=== PATIENT | female | born 1950 | race Two or more races ===

== ENCOUNTER 2020-07-09 03:58 | Inpatient (IN) | payer MEDICARE, BC ==
[~2020-07-09] VITALS: Ht 157.5 cm; Wt 61.7 kg
--- NOTE | 2020-07-09 04:02 | NUR ---
BIBRA 89 FROM HOME C/O LEFT SIDED CHEST PAIN SINCE MIDNIGHT. PT AAOX4, DENEIS ANY SOB. GOWNED, PIV STARTED, PENDING ER PROVIDER MARY
[2020-07-09 04:42] LABS: BASOPHILS # (AUTO) 0.2 /CMM (0.0-0.2); BASOPHILS % (AUTO) 0.8 % (0.0-2.0); HEMATOCRIT 38 % (33-45); HEMOGLOBIN 12.3 g/dL (11.5-14.8); LYMPHOCYTES # (AUTO) 1.6 /CMM (0.8-4.8); LYMPHOCYTES % (AUTO) 9.2 % (20.0-44.0); MEAN CORPUSCULAR HGB CONC 32 g/dl (31.0-36.0); MEAN CORPUSCULAR VOLUME 97 fL (82-100); MONOCYTES # (AUTO) 1.3 /CMM (0.1-1.30); NEUTROPHILS # (AUTO) 14.5 /CMM (1.8-8.9); PLATELET COUNT (AUTO) 397 /CMM (150-450); RED BLOOD CELL COUNT(AUTO) 3.95 MIL/uL (4.0-5.2); WHITE BLOOD COUNT (AUTO) 17.9 K/uL (4.3-11.0)
[2020-07-09] MEDS ORDERED: LORAZEPAM 1 MG TABLET ONE (04:45)
[2020-07-09 04:48] LABS: CALCIUM, SERUM 9.1 mg/dL (8.5-10.1); CARBON DIOXIDE 26 mmol/L (21-32); CHLORIDE 99 mmol/L (98-107); CREATININE 0.9 mg/dL (0.6-1.3); GLUCOSE 142 mg/dL (74-106); POTASSIUM 3.4 mmol/L (3.5-5.1); SODIUM SERUM 137 mmol/L (136-145); UREA NITROGEN, BLOOD 8 mg/dL (7-18)
[2020-07-09] MEDS ORDERED: ONDANSETRON HCL/PF 4 MG/2 ML VIAL ONE (04:56)
[2020-07-09] MEDS ORDERED: MORPHINE SULFATE INJ 4 MG/ML DISP.SYRIN ONE (04:56)
[2020-07-09] MEDS ORDERED: ONDANSETRON HCL/PF 4 MG/2 ML VIAL IV ONE (05:00)
[2020-07-09] MEDS ORDERED: MORPHINE SULFATE INJ 10 MG/ML DISP.SYRIN IV ONE (05:00)
[2020-07-09] MEDS ORDERED: VANCOMYCIN 1 GM in IV D5W 250 ML IV ONE (06:00)
[2020-07-09] MEDS ORDERED: PIPERACILLIN /TAZOBACTAM 3.375 G in IV D5W 50 ML IV ONE (06:00)
--- NOTE | 2020-07-09 06:00 | NUR ---
PT UNABLE TO PROVIDE URINE SAMPLE AT THIS TIME, DR DAVILA AWARE
--- NOTE | 2020-07-09 06:19 | NUR ---
COVID SWAB SENT
[2020-07-09] MEDS ORDERED: PIPERACILLIN /TAZOBACTAM 3.375 G VIAL IV ONE (06:20)
[2020-07-09] MEDS ORDERED: VANCOMYCIN 1 GM VIAL ONE (06:20)
[2020-07-09] MEDS ORDERED: MAGNESIUM HYDROXIDE 30 ML UDC PO PRN (07:00)
[2020-07-09] MEDS ORDERED: Z GUARD REMEDY 2 OZ OINT TP PRN (07:00)
[2020-07-09] MEDS ORDERED: MAG HYDROX/AL HYDROX/SIMETH 30 ML UDC PO PRN (07:00)
[2020-07-09] MEDS ORDERED: ZOLPIDEM TARTRATE 5 MG TABLET PO PRN (07:00)
[2020-07-09] MEDS ORDERED: ONDANSETRON HCL/PF 4 MG/2 ML VIAL IVP PRN (07:00)
[2020-07-09] MEDS: ENOXAPARIN SODIUM 40 MG/0.4 ML DISP.SYRIN SQ SCH (07:30)
[2020-07-09] MEDS: PANTOPRAZOLE 40 MG TABLET.DR PO SCH ×2 (07:30→08:05)
[2020-07-09] MEDS ORDERED: ENOXAPARIN SODIUM 40 MG/0.4 ML DISP.SYRIN SQ ONE (07:56)
[2020-07-09] MEDS ORDERED: PANTOPRAZOLE 40 MG TABLET.DR PO ONE (07:56)
--- NOTE | 2020-07-09 08:00 | NUR ---
PT V/S STABLE, MEDS ADMIN ORDERED. WILL MONITOR ACCORDINGLY.
[2020-07-09] MEDS: NICOTINE PATCH (7MG) 7 MG PATCH.TD24 TD SCH ×2 (08:18→09:00)
[2020-07-09] MEDS: PIPERACILLIN /TAZOBACTAM 3.375 G in IV D5W 100 ML IV SCH ×2 (09:28→18:07)
[2020-07-09] MEDS: HYDROCODONE/APAP 5/325MG TABLET PO PRN ×2 (09:30→19:44)
[2020-07-09] MEDS ORDERED: HYDROCODONE/APAP 5/325MG TABLET ONE (09:30)
--- NOTE | 2020-07-09 09:30 | NUR ---
PATIENT REFUSED BREAKFAST TRAY.
[2020-07-09] MEDS ORDERED: AMLO-212 MT (10:35)
--- NOTE | 2020-07-09 10:37 | NUR ---
PATIENT A/OX4, REMOVED O2 AND SPO2 SHOWS 85% ON ROOM AIR. DR. WALTER AT BEDSIDE FOR EVAL.
[2020-07-09] MEDS ORDERED: POTASSIUM CHLORIDE 20 MEQ TAB.PRT.SR PO SCH (11:00)
[2020-07-09] MEDS ORDERED: POTASSIUM CHLORIDE 20 MEQ TAB.PRT.SR PO ONE (11:07)
[2020-07-09] MEDS ORDERED: MORPHINE SULFATE INJ 2 MG/ML DISP.SYRIN ONE (11:54)
--- NOTE | 2020-07-09 11:57 | NUR ---
NURSING SUP GAVE TELE BED 105.
[2020-07-09] MEDS: MORPHINE SULFATE INJ 2 MG/ML DISP.SYRIN IV PRN ×2 (12:01→17:28)
--- NOTE | 2020-07-09 12:30 | NUR ---
REPORT GIVEN TO BJ HORAN FOR CAR.
--- NOTE | 2020-07-09 12:31 | NUR ---
REPORT RECEIVED FROM MARIVELGet Me ListedAlyson FOR CAR.
--- NOTE | 2020-07-09 13:03 | NUR ---
PATIENT TRANSFERRED TO ROOM 105-1 VIA ACLS PROTOCOL. NO DISTRESS NOTED. ON O2 AT 4LPM VIA NC WITH SPO2 OF 98%. NEEDS ATTENDED.
--- NOTE | 2020-07-09 13:04 | NUR ---
ADMIT NOTE RECEIVED PATIENT FROM ER VIA GURNEY. PATIENT ON 4L O2 THERAPY VIA NASAL CANNULA, NO S/S OF RESPIRATORY DISTRESS AT THIS TIME. PATIENT ALERT/ORIENTED X4, ABLE TO MAKE NEEDS KNOWN. TELE MONITOR SET UP. PATIENT HAS A R HAND 22G IV INTACT AND PATENT. NO S/S OF INFECTION AT THIS TIME. PATIENT REPORTS SEVERE CHEST PAIN. PATIENT RECEIVED MORPHINE 2MG AT 1201 IN THE ER. MD MADE AWARE OF CONTINUED PAIN. ALL SAFETY MEASURES IN PLACE PER HOSPITAL POLICY. WILL CONTINUE TO MONITOR PATIENT AND PROVIDE TREATMENT.
[2020-07-09] MEDS ORDERED: NITROGLYCERIN 0.4 MG/TAB BOTTLE SL ONE (14:00)
[2020-07-09] MEDS: ACETAMINOPHEN 325 MG TABLET PO PRN (14:08)
[2020-07-09 16:00] VITALS: BP 154/68
[2020-07-09] MEDS ORDERED: NITROGLYCERIN 0.4 MG/HR PATCH.TD24 TD SCH (17:30)
--- NOTE | 2020-07-09 18:29 | NUR ---
TELEMETRY CLOSING NOTE PATIENT ON 4L O2 THERAPY VIA NASAL CANNULA, NO S/S OF RESPIRATORY DISTRESS AT THIS TIME. PATIENT ALERT/ORIENTED X4, ABLE TO MAKE NEEDS KNOWN. TELE MONITOR SET UP. PATIENT HAS A R HAND 22G IV INTACT AND PATENT. NO S/S OF INFECTION AT THIS TIME. ALL SAFETY MEASURES IN PLACE PER HOSPITAL POLICY. WILL ENDORSE TO LARD BLEACHER NURSE FOR CAR.
[2020-07-09 20:00] VITALS: BP 146/75
--- NOTE | 2020-07-09 20:16 | NUR ---
RN NOTE PATIENT A/OX4, AWAKE AND ALERT. ABLE TO MAKE NEEDS KNOWN. NO SOB OR ANY DISTRESS. ON O2 4L VIA NASAL CANNULA. C/O OF 8/10 CHEST PAIN, NORCO 5/325 MG GIVEN ORDERED. WILL REASSES FOR EFFECTIVENESS. WITH RIGHT HAND #22, PATENT AND INTACT. ALL NEEDS ANTICIPATED. KEPT CLEAN AND DRY. CALL LIGHT WITHIN REACH. WILL CONTINUE TO MONITOR.
--- NOTE | 2020-07-09 21:29 | NUR ---
PATIENT STATED NITRO PASTE PATCH IS INEFFECTIVE AND INSISTS NITRO SL TO RELIEVE HER PAIN. DR. BURROUGHS MADE AWARE WITH NEW ORDERS NOTED AND CARRIED OUT.
[2020-07-10] VITALS (7 sets, daily range): BP systolic 115–133; BP diastolic 70–77
[2020-07-10] MEDS: NITROGLYCERIN 0.4 MG/TAB BOTTLE SL PRN ×3 (00:15→00:41)
[2020-07-10] MEDS: MORPHINE SULFATE INJ 2 MG/ML DISP.SYRIN IV PRN ×4 (00:48→19:13)
[2020-07-10] MEDS: PIPERACILLIN /TAZOBACTAM 3.375 G in IV D5W 100 ML IV SCH ×3 (01:32→18:11)
[2020-07-10] MEDS ORDERED: ALPRAZOLAM 0.25 MG TABLET PO PRN (06:00)
--- NOTE | 2020-07-10 06:00 | NUR ---
PATIENT EXPRESSED FEELINGS OF ANXIETY. ENFORCED CALM ENVIRONMENT, NEEDS ATTENDED PROMPTLY, BUT STILL ANXIOUS. DR. BURROUGHS MADE AWARE WITH NEW ORDERS NOTED AND CARRIED OUT.
[2020-07-10] MEDS: ENOXAPARIN SODIUM 40 MG/0.4 ML DISP.SYRIN SQ SCH (06:21)
--- NOTE | 2020-07-10 07:00 | NUR ---
RN NOTE PATIENT A/OX4, AWAKE AND ALERT. NO SOB OR ANY RESPIRATORY DISTRESS. DENIES ANY PAIN AT THIS TIME. ON O2 4L VIA NASAL CANNULA, O2 SAT 97%. WITH RIGHT HAND #22 PATENT AND INTACT. ALL NEEDS ATTENDED PROMPTLY. CALL LIGHT WITHIN REACH. SAFETY MEASURES IMPLEMENTED. WILL ENDORSE TO ONCOMING SHIFT.
[2020-07-10 07:28] LABS: BASOPHILS % (AUTO) 0.2 % (0.0-2.0); EOSINOPHILS % (AUTO) 0.2 % (0.0-6.0); HEMATOCRIT 34 % (33-45); HEMOGLOBIN 11.2 g/dL (11.5-14.8); LYMPHOCYTES # (AUTO) 0.7 /CMM (0.8-4.8); LYMPHOCYTES % (AUTO) 5.2 % (20.0-44.0); MEAN CORPUSCULAR HGB CONC 33 g/dl (31.0-36.0); MEAN CORPUSCULAR VOLUME 97 fL (82-100); MONOCYTES # (AUTO) 1.5 /CMM (0.1-1.30); MONOCYTES % (AUTO) 11.4 % (2.0-12.0); PLATELET COUNT (AUTO) 339 /CMM (150-450); RED BLOOD CELL COUNT(AUTO) 3.53 MIL/uL (4.0-5.2); WHITE BLOOD COUNT (AUTO) 13.2 K/uL (4.3-11.0)
--- NOTE | 2020-07-10 07:30 | NUR ---
RN OPENEING NOTES Patient is alert and oriented with no s/s of respiratory depression. Patient is breathing even and unlabored. On 02 4liters via n/c with 02 sat of 96% . IV access to right hand #22 gauge patent and flushing well. No c/o pain or discomfort. Bed is in lowest and locked position. Call light with in reach. Will continue to monitor.
[2020-07-10 07:40] LABS: CALCIUM, SERUM 8.7 mg/dL (8.5-10.1); CREATININE 0.7 mg/dL (0.6-1.3); MAGNESIUM 1.9 mg/dL (1.8-2.4); PHOSPHORUS 3.2 mg/dL (2.5-4.9); POTASSIUM 3.9 mmol/L (3.5-5.1)
[2020-07-10] MEDS: AMLODIPINE BESYLATE 5 MG TABLET PO SCH (09:54)
--- NOTE | 2020-07-10 16:40 | NUR ---
Patient was transferred to MED SURG at apprx 1630. Report given to Dinorah HORAN by bed side and on the phone. Patient did not c/o respiratory distress. No c/o pain or discomfort. 02 sat 96% on 4 lpm via n/c via tank. Patient transferred and not in any acute distress.
--- NOTE | 2020-07-10 16:45 | NUR ---
DIRECTOR OF EARLY CHILDHOOD NOTE RECEIVED PATIENT FROM [facility]. PATIENT IN NO ACUTE DISTRESS. NO SOB NOTED. PATIENT IS ON 4L OXYGEN VIA NASAL CANNULA. TOLERATING WELL. PATIENTS VITAL SIGNS ARE WITHIN NORMAL LIMITS. WILL CONTINUE TO MONITOR CLOSELY THROUGH THE REST OF THE SHIFT.
--- NOTE | 2020-07-10 20:06 | NUR ---
ARCHITECTURAL DESIGN PROFESSOR CLOSING NOTE PATIENT IS IN BED RESTING. PATIENT IS IN NO ACUTE DISTRESS. NO SOB NOTED PATIENT IS ON OXYGEN 4L ON NC. TOLERATING WELL. PATIENT IS ON TELE READING SR. SAFETY PRECAUTIONS ARE IN PLACE. BED IN THE LOWEST POSITION, SIDE RAILS ARE UP. CALL LIGHT WITHIN REACH. ENDORSE PATIENT TO THE NURSING ADMIN NURSE FOR CAR.
[2020-07-11] VITALS: BP_SYST 135; BP_SYST 142; BP_DIAS 78; BP_DIAS 79
[2020-07-11] MEDS: PIPERACILLIN /TAZOBACTAM 3.375 G in IV D5W 100 ML IV SCH ×3 (01:17→17:08)
[2020-07-11] MEDS: MORPHINE SULFATE INJ 2 MG/ML DISP.SYRIN IV PRN (02:17)
[2020-07-11 04:00] VITALS: BP 154/90
[2020-07-11 04:30] VITALS: BP 132/80
[2020-07-11 06:18] LABS: BASOPHILS # (AUTO) 0.1 /CMM (0.0-0.2); EOSINOPHILS % (AUTO) 0.3 % (0.0-6.0); HEMATOCRIT 37 % (33-45); HEMOGLOBIN 12.2 g/dL (11.5-14.8); LYMPHOCYTES # (AUTO) 0.7 /CMM (0.8-4.8); LYMPHOCYTES % (AUTO) 4.5 % (20.0-44.0); MEAN CORPUSCULAR HGB CONC 33 g/dl (31.0-36.0); MEAN CORPUSCULAR VOLUME 96 fL (82-100); MONOCYTES # (AUTO) 1.6 /CMM (0.1-1.30); MONOCYTES % (AUTO) 10.9 % (2.0-12.0); NEUTROPHILS % (AUTO) 83.3 % (43.0-81.0); PLATELET COUNT (AUTO) 369 /CMM (150-450); RED BLOOD CELL COUNT(AUTO) 3.87 MIL/uL (4.0-5.2); WHITE BLOOD COUNT (AUTO) 14.4 K/uL (4.3-11.0)
--- NOTE | 2020-07-11 06:23 | NUR ---
RN NOTES PATIENT IS IN BED RESTING. PATIENT IS IN NO ACUTE DISTRESS. NO SOB NOTED PATIENT IS ON OXYGEN 4L ON NC. TOLERATING WELL. PATIENT IS ON TELE READING SR. SAFETY PRECAUTIONS ARE IN PLACE, CALL LIGHT WITHIN REACH. ALL NEEDS ATTENDED AND ANTICIPATED, ENDORSE PATIENT TO THE AM SHIFT NURSE FOR CONTIUITY WITH CRAE .
[2020-07-11] MEDS: ENOXAPARIN SODIUM 40 MG/0.4 ML DISP.SYRIN SQ SCH (06:49)
[2020-07-11 07:14] LABS: CALCIUM, SERUM 8.8 mg/dL (8.5-10.1); CREATININE 0.6 mg/dL (0.6-1.3); POTASSIUM 3.8 mmol/L (3.5-5.1)
--- NOTE | 2020-07-11 07:20 | NUR ---
PRESCHOOL TEACHER OPENING NOTES PATIENT IN BED. A/O X4. VERBALIZING SOB WHEN MOVING. NC ON 4 LPM. IV ACCESS ON R HAND #22 G. ORDERED NITRO PATCH 0.4 MG PER MD MARTÍNEZ. SAFETY MEASURES MAINTAINED. BED IN LOWEST POSITION, BRAKES LOCKED. SIDE RAILS UP X2. CALL LIGHT WITHIN REACH. WILL CONTINUE PLAN OF CARE.
[2020-07-11 07:33] LABS: ALBUMIN 2.7 g/dL (3.4-5.0); BILIRUBIN,TOTAL 0.5 mg/dL (0.2-1.0); TOTAL PROTEIN, SERUM 7.2 g/dL (6.4-8.2)
[2020-07-11] MEDS ORDERED: NITROGLYCERIN 0.4 MG/HR PATCH.TD24 TD SCH (08:00)
[2020-07-11 08:29] VITALS: BP 135/84
[2020-07-11] MEDS: AMLODIPINE BESYLATE 5 MG TABLET PO SCH (08:47)
[2020-07-11] MEDS: PANTOPRAZOLE 40 MG TABLET.DR PO SCH (08:47)
--- NOTE | 2020-07-11 14:00 | NUR ---
MS RN NOTES TEMP 100.5. TYLENON WAS GIVEN.
[2020-07-11] MEDS: NITROGLYCERIN 0.4 MG/TAB BOTTLE SL PRN (14:03)
[2020-07-11] MEDS: ACETAMINOPHEN 325 MG TABLET PO PRN (14:10)
--- NOTE | 2020-07-11 15:30 | NUR ---
MS RN NOTES TEMP WENT DOWN TO 99 F. WILL CONTINUE TO MONITOR.
[2020-07-11 16:24] VITALS: BP 147/73
--- NOTE | 2020-07-11 18:57 | NUR ---
PERSONNEL TECHNICIAN CLOSING NOTES PATIENT IN BED. A/O X4. NC ON 2 LPM WITH SAO2 OF 99%. IV ACCESS ON R HAND #22 G. ABLE TO MAKE NEEDS KNOWN. ROUTINE MEDS WERE GIVEN ORDERED. SAFETY MEASURES MAINTAINED. BED IN LOWEST POSITION, BRAKES LOCKED. SIDE RAILS UP X2. CALL LIGHT WITHIN REACH. WILL ENDORSE TO [employer] LABORER FOR CAR.
--- NOTE | 2020-07-11 19:30 | NUR ---
MS/RN OPENING NOTES RECEIVED PATIENT IN BED. PATIENT IS ALERT AND ORIENTED X 4. PATIENT BREATHING IS EVEN AND UNLABORED. PATIENT HAS NO SIGNS OF SOB OR RESPIRATORY DISTRESS NOTED. PATIENT STATES MILD DISCOMFORTABLE AT THIS TIME, DENIES CHEST PAIN. PATIENT HAS IV ACCESS IN PLACE FLUSHING WELL. SAFETY MEASURES ARE IN PLACE, BED IS LOCKED AND PLACED IN THE LOW POSITION, SIDE RAILS UP X 2 CALL LIGHT IS WITHIN REACH. WILL CONTINUE TO MONITOR THROUGH OUT SHIFT.
[2020-07-11 20:00] VITALS: BP 148/78
[2020-07-11] MEDS: HYDROCODONE/APAP 5/325MG TABLET PO PRN (20:52)
--- NOTE | 2020-07-11 21:00 | NUR ---
MS/RN NOTES PATIENT COMPLAINING OF GENERALIZED PAIN AND DISCOMFORT. NORCO 5 MG PO GIVEN. V/S WNL. WILL CONTINUE TO MONITOR.
[2020-07-12] MEDS: PIPERACILLIN /TAZOBACTAM 3.375 G in IV D5W 100 ML IV SCH (01:44)
[2020-07-12] MEDS: HYDROCODONE/APAP 5/325MG TABLET PO PRN (01:56)
--- NOTE | 2020-07-12 02:00 | NUR ---
MS/RN NOTES PATIENT STATED GENERALIZED PAIN AND DISCOMFORT. NORCO 5 MG PO GIVEN. V/S WNL. WILL CONTINUE TO MONITOR.
[2020-07-12 06:16] LABS: BASOPHILS # (AUTO) 0.1 /CMM (0.0-0.2); BASOPHILS % (AUTO) 0.8 % (0.0-2.0); EOSINOPHILS % (AUTO) 0.8 % (0.0-6.0); HEMATOCRIT 36 % (33-45); LYMPHOCYTES # (AUTO) 0.9 /CMM (0.8-4.8); LYMPHOCYTES % (AUTO) 6.2 % (20.0-44.0); MEAN CORPUSCULAR HGB CONC 33 g/dl (31.0-36.0); MEAN CORPUSCULAR VOLUME 95 fL (82-100); MONOCYTES # (AUTO) 1.6 /CMM (0.1-1.30); MONOCYTES % (AUTO) 11.4 % (2.0-12.0); NEUTROPHILS # (AUTO) 11.5 /CMM (1.8-8.9); NEUTROPHILS % (AUTO) 80.8 % (43.0-81.0); PLATELET COUNT (AUTO) 408 /CMM (150-450); RED BLOOD CELL COUNT(AUTO) 3.81 MIL/uL (4.0-5.2); WHITE BLOOD COUNT (AUTO) 14.2 K/uL (4.3-11.0)
--- NOTE | 2020-07-12 06:54 | NUR ---
MS/RN CLOSING NOTES PATIENT IN BED RESTING. PATIENT IS ALERT AND ORIENTED X 4. PATIENT BREATHING IS EVEN AND UNLABORED. PATIENT HAS NO SIGNS OF SOB OR RESPIRATORY DISTRESS NOTED. PATIENT HAS IV ACCESS IN PLACE FLUSHING WELL ON RIGHT HAND #22G. ALL NEEDS HAVE BEEN MET DURING SHIFT. SAFETY MEASURES ARE IN PLACE, BED IS LOCKED AND PLACED IN THE LOW POSITION, SIDE RAILS UP X 2 CALL LIGHT IS WITHIN REACH. WILL ENDORSE CARE TO DAY SHIFT NURSE.
--- NOTE | 2020-07-12 07:15 | NUR ---
MS RN OPENING NOTES PATIENT IN BED. A/O X4. NO S/S OF RESPIRATORY DISTRESS. DENIES ANY PAIN. NC ON 2 LPM. IV ACCESS ON R HAND #22 G. SAFETY MEASURES MAINTAINED. BED IN LOWEST POSITION, BRAKES LOCKED. SIDE RAILS UP X2. CALL LIGHT WITHIN REACH. WILL CONTINUE PLAN OF CARE.
[2020-07-12 07:17] LABS: CREATININE 0.7 mg/dL (0.6-1.3); POTASSIUM 3.4 mmol/L (3.5-5.1)
[2020-07-12] MEDS: ENOXAPARIN SODIUM 40 MG/0.4 ML DISP.SYRIN SQ SCH (07:23)
[2020-07-12] MEDS ORDERED: AZITHROMYCIN 250 MG TABLET PO ONE (07:30)
[2020-07-12] MEDS: PANTOPRAZOLE 40 MG TABLET.DR PO SCH (07:54)
[2020-07-12 08:00] VITALS: BP 132/70
--- NOTE | 2020-07-12 08:30 | NUR ---
MS RN NOTES DISCONTINUED NITRO PATCH 0.4 MG PER MD MARTÍNEZ.
--- NOTE | 2020-07-12 08:30 | NUR ---
MS RN NOTES TITRATE O2 PER MD MARTÍNEZ. TAUGHT HOW TO USE INCENTIVE SPIROMETER. VERBALIZED UNDERSTANDING. DID A RETURN DEMONSTRATION. WILL CONTINUE TO MONITOR.
[2020-07-12] MEDS: CEFTRIAXONE 1 G in IV D5W 50 ML IV SCH (08:43)
[2020-07-12] MEDS: AMLODIPINE BESYLATE 5 MG TABLET PO SCH (08:46)
[2020-07-12] MEDS ORDERED: POTASSIUM CHLORIDE 20 MEQ TAB.PRT.SR PO SCH (10:30)
[2020-07-12] MEDS: ACETAMINOPHEN 325 MG TABLET PO PRN (15:04)
--- NOTE | 2020-07-12 15:04 | NUR ---
MS RN NOTES TEMP 99.9. TYLENOL PRN WAS GIVEN. WILL CONTINUE TO MONITOR.
[2020-07-12 16:00] VITALS: BP 147/76
--- NOTE | 2020-07-12 18:10 | NUR ---
MS RN CLOSING NOTES PATIENT IN BED. A/O X4. IN NO APPARENT DISTRESS. DENIES ANY PAIN. NC ON 1 LPM. IV ACCESS ON R HAND #22 G, INTACT AND PATENT. ABLE TO MAKE NEEDS KNOWN. ROUTINE MEDS WERE GIVEN ORDERED. REINFORCED TEACHING REGARDING USE OF INCENTIVE SPIROMETER. SAFETY MEASURES MAINTAINED. BED IN LOWEST POSITION, BRAKES LOCKED. SIDE RAILS UP X2. CALL LIGHT WITHIN REACH. WILL ENDORSE TO BEEKEEPER FARMER FOR CONTINUITY OF CARE.
--- NOTE | 2020-07-12 19:30 | NUR ---
MS/RN OPENING NOTES RECEIVED PATIENT IN BED RESTING. PATIENT IS ALERT AND ORIENTED X 4. PATIENT BREATHING IS EVEN AND UNLABORED. PATIENT HAS NO SIGNS OF SOB OR RESPIRATORY DISTRESS NOTED. PATIENT HAS IV ACCESS IN PLACE FLUSHING WELL ON RIGHT HAND #22G. SAFETY MEASURES ARE IN PLACE, BED IS LOCKED AND PLACED IN THE LOW POSITION, SIDE RAILS UP X 2 CALL LIGHT IS WITHIN REACH. WILL MONITOR THROUGH OUT SHIFT.
[2020-07-12 20:00] VITALS: BP 144/65
--- NOTE | 2020-07-12 21:30 | NUR ---
MS/RN NOTES PATIENT REQUESTING FOR SLEEPING AID. GIVEN AMBIEN 5 MG PO. WILL CONTINUE TO MONITOR.
--- NOTE | 2020-07-13 06:20 | NUR ---
MS/RN CLOSING NOTES PATIENT IN BED RESTING. PATIENT IS ALERT AND ORIENTED X 4. PATIENT BREATHING IS EVEN AND UNLABORED. PATIENT HAS NO SIGNS OF SOB OR RESPIRATORY DISTRESS NOTED. PATIENT HAS IV ACCESS IN PLACE FLUSHING WELL ON RIGHT HAND #22G. ALL NEEDS HAVE BEEN MET. SAFETY MEASURES ARE IN PLACE, BED IS LOCKED AND PLACED IN THE LOW POSITION, SIDE RAILS UP X 2 CALL LIGHT IS WITHIN REACH. WILL ENDORSE CARE TO DAY SHIFT NURSE.
[2020-07-13] MEDS: ENOXAPARIN SODIUM 40 MG/0.4 ML DISP.SYRIN SQ SCH (06:55)
[2020-07-13 06:58] LABS: BASOPHILS % (AUTO) 0.3 % (0.0-2.0); EOSINOPHILS % (AUTO) 1.1 % (0.0-6.0); HEMATOCRIT 35 % (33-45); HEMOGLOBIN 11.4 g/dL (11.5-14.8); LYMPHOCYTES % (AUTO) 6.5 % (20.0-44.0); MEAN CORPUSCULAR HGB CONC 33 g/dl (31.0-36.0); MEAN CORPUSCULAR VOLUME 95 fL (82-100); MONOCYTES # (AUTO) 1.8 /CMM (0.1-1.30); NEUTROPHILS # (AUTO) 13.1 /CMM (1.8-8.9); NEUTROPHILS % (AUTO) 81.1 % (43.0-81.0); PLATELET COUNT (AUTO) 483 /CMM (150-450); RED BLOOD CELL COUNT(AUTO) 3.63 MIL/uL (4.0-5.2); WHITE BLOOD COUNT (AUTO) 16.1 K/uL (4.3-11.0)
--- NOTE | 2020-07-13 07:08 | NUR ---
MS RN OPENING NOTES PATIENT IN BED. A/O X4. AFEBRILE. NO S/S OF RESPIRATORY DISTRESS NOTED. DENIES ANY PAIN. IV ACCESS ON R HAND #22 G, INTACT AND PATENT. SAFETY MEASURES MAINTAINED. BED IN LOWEST POSITION, BRAKES LOCKED. SIDE RAILS UP X2. CALL LIGHT WITHIN REACH. WILL CONTINUE POC.
[2020-07-13 07:34] LABS: CALCIUM, SERUM 9.2 mg/dL (8.5-10.1); CREATININE 0.7 mg/dL (0.6-1.3); MAGNESIUM 2.4 mg/dL (1.8-2.4); POTASSIUM 3.5 mmol/L (3.5-5.1)
[2020-07-13 08:00] VITALS: BP 149/75
[2020-07-13] MEDS: CEFTRIAXONE 1 G in IV D5W 50 ML IV SCH (08:14)
[2020-07-13] MEDS: AMLODIPINE BESYLATE 5 MG TABLET PO SCH (08:14)
[2020-07-13] MEDS: PANTOPRAZOLE 40 MG TABLET.DR PO SCH (08:14)
[2020-07-13] MEDS: AZITHROMYCIN 250 MG TABLET PO SCH (08:14)
--- NOTE | 2020-07-13 10:15 | NUR ---
MS RN NOTES PATIENT TOLERATING ROOM AIR, SA02 OF 96%. WILL CONTINUE TO MONITOR.
--- NOTE | 2020-07-13 14:05 | NUR ---
MS RN NOTES PATIENT VERBALIZED SOB. SA02 OF 89% PUT THE PT BACK ON NC 2LPM.
[2020-07-13] MEDS: ACETAMINOPHEN 325 MG TABLET PO PRN (15:27)
--- NOTE | 2020-07-13 15:27 | NUR ---
MS RN NOTES TEMP OF 100.2, TYLENOL GIVEN
[2020-07-13 16:00] VITALS: BP 124/70
--- NOTE | 2020-07-13 16:30 | NUR ---
MS RN NOTES SAO2 98% ON NC 2 LPM
--- NOTE | 2020-07-13 17:30 | NUR ---
MS RN NOTES RECHECKED TEMP 98.1
--- NOTE | 2020-07-13 17:35 | NUR ---
MS RN NOTES TRIED TO PUT THE PATIENT IN ROOM AIR. SATURATING @ 90%
[2020-07-13] MEDS: ENSURE ENLIVE CHOC 237 ML CAN PO SCH (18:04)
--- NOTE | 2020-07-13 18:17 | NUR ---
MS RN CLOSING NOTES PATIENT IN BED. A/O X4. NO SOB NOTED AT THIS TIME. IN NO APPARENT DISTRESS. AFEBRILE. DENIES ANY PAIN. IV ACCESS ON R HAND #22 G, INTACT AND PATENT. ALL NEEDS HAVE BEEN MET. ROUTINE MEDS WERE GIVEN ORDERED. SAFETY MEASURES MAINTAINED. BED IN LOWEST POSITION, BRAKES LOCKED. SIDE RAILS UP X2. CALL LIGHT WITHIN REACH. WILL ENDORSE TO KNIFE SETTER GRINDER MACHINE FOR CONTINUITY OF CARE.
--- NOTE | 2020-07-13 20:17 | NUR ---
RN NOTES PATIENT IN BED. A/O X4. NO SOB NOTED AT THIS TIME. IN NO APPARENT DISTRESS. AFEBRILE. DENIES ANY PAIN. IV ACCESS ON R HAND #22 G, INTACT AND PATENT. ALL NEEDS HAVE BEEN MET. SAFETY MEASURES MAINTAINED. BED IN LOWEST POSITION, BRAKES LOCKED. SIDE RAILS UP X2. CALL LIGHT WITHIN REACH.WILL CONTINUE TO MONITOR.
[2020-07-13 21:32] VITALS: BP 128/74
[2020-07-14 06:12] LABS: BASOPHILS # (AUTO) 0.1 /CMM (0.0-0.2); BASOPHILS % (AUTO) 0.7 % (0.0-2.0); EOSINOPHILS % (AUTO) 1.8 % (0.0-6.0); HEMATOCRIT 35 % (33-45); HEMOGLOBIN 11.8 g/dL (11.5-14.8); LYMPHOCYTES # (AUTO) 1.3 /CMM (0.8-4.8); MEAN CORPUSCULAR HGB CONC 34 g/dl (31.0-36.0); MEAN CORPUSCULAR VOLUME 94 fL (82-100); MONOCYTES # (AUTO) 1.9 /CMM (0.1-1.30); MONOCYTES % (AUTO) 12.1 % (2.0-12.0); NEUTROPHILS # (AUTO) 12.5 /CMM (1.8-8.9); NEUTROPHILS % (AUTO) 77.4 % (43.0-81.0); PLATELET COUNT (AUTO) 591 /CMM (150-450); RED BLOOD CELL COUNT(AUTO) 3.75 MIL/uL (4.0-5.2); WHITE BLOOD COUNT (AUTO) 16.1 K/uL (4.3-11.0)
[2020-07-14 07:02] LABS: CALCIUM, SERUM 9.1 mg/dL (8.5-10.1); CREATININE 0.6 mg/dL (0.6-1.3); MAGNESIUM 2.5 mg/dL (1.8-2.4); PHOSPHORUS 3.4 mg/dL (2.5-4.9); POTASSIUM 3.2 mmol/L (3.5-5.1)
[2020-07-14] MEDS: ENOXAPARIN SODIUM 40 MG/0.4 ML DISP.SYRIN SQ SCH (07:06)
[2020-07-14 07:16] LABS: THYROID STIMULATING HORMONE 1.338 uIU/mL (0.358-3.74); URIC ACID 2.6 mg/dL (2.6-7.2)
--- NOTE | 2020-07-14 07:19 | NUR ---
RN NOTES PATIENT IN BED. A/O X4. NO SOB NOTED AT THIS TIME. IN NO APPARENT DISTRESS. AFEBRILE. DENIES ANY PAIN. IV ACCESS ON R HAND #22 G, INTACT AND PATENT. ALL NEEDS HAVE BEEN MET. SAFETY MEASURES MAINTAINED. BED IN LOWEST POSITION, BRAKES LOCKED. SIDE RAILS UP X2. CALL LIGHT WITHIN REACH.WILL CONTINUE TO MONITOR. PT WILL HAVE EGD AND COLONOSCOPY TODAY PREP TAKEN AND TOLERATED WELL. WILL ENDORSE CARE TO DAY SHIFT NURSE.
[2020-07-14] MEDS ORDERED: AZIT250T PO (07:22)
[2020-07-14 08:00] VITALS: BP 130/77
--- NOTE | 2020-07-14 08:00 | NUR ---
RN OPENING NOTE PT IS A/O X3 AND LAO SPEAKING. ABLE TO MAKE NEEDS KNOWN TO NURSES. NO COMPLAINT OF PAIN. CURRENTLY ON RA. NO SOB OR RESPIRATORY DISTRESS PRESENT. CURRENTLY AMBULATORY WITH STAND BY ASSIST. SKIN IS INTACT. HL PRESENT IN R HAND, 22G. SAFETY MEASURES IN PLACE. SIDE RAILS RAISED. BED LOWERED. CALL LIGHT WITHIN REACH. WILL CONTINUE TO MONITOR.
[2020-07-14] MEDS: AZITHROMYCIN 250 MG TABLET PO SCH (08:44)
[2020-07-14 08:45] VITALS: BP 130/77
[2020-07-14] MEDS: AMLODIPINE BESYLATE 5 MG TABLET PO SCH (08:45)
[2020-07-14] MEDS: PANTOPRAZOLE 40 MG TABLET.DR PO SCH (08:45)
[2020-07-14] MEDS: CEFTRIAXONE 1 G in IV D5W 50 ML IV SCH (08:46)
[2020-07-14] MEDS ORDERED: POTASSIUM CHLORIDE 20 MEQ TAB.PRT.SR PO ONE ×2 (08:48→09:00)
[2020-07-14] MEDS: ENSURE ENLIVE CHOC 237 ML CAN PO SCH (08:56)
[2020-07-14] MEDS: ACETAMINOPHEN 325 MG TABLET PO PRN (13:32)
[2020-07-14 14:07] LABS: *SPE A/G RATIO 0.7 (0.7-1.7); *SPE ALBUMIN 2.5 g/dL (2.9-4.4); *SPE ALPHA-1-GLOBULIN 0.7 g/dL (0.0-0.4); *SPE ALPHA-2-GLOBULIN 1.6 g/dL (0.4-1.0); *SPE GLOBULIN, TOTAL 3.8 g/dL (2.2-3.9); *SPE M-SPIKE Not Observed g/dL (Not Observed); *SPEGAMMA GLOBULIN 0.6 g/dL (0.4-1.8)
--- NOTE | 2020-07-14 16:33 | NUR ---
SCRIPT ARTIST NOTE PT DISCHARGED HOME VIA PRIVATE CAR ACCOMPANIED BY SON. MEDICALLY STABLE TO GO HOME. EXITCARE INSTRUCTIONS GIVEN. EDUCATION ON MEDICATIONS GIVEN. ENCOURAGED TO FOLLOW UP WITH PCP. HL REMOVED. ID BAND REMOVED.
== END 2020-07-14 16:30 | disposition home or self-care (01) | DRG 194 ==
LOC: ER 04:01 → TRANSITION 05:53 → TELE1 12:21 → TELE 07-10 16:17 → MED 07-11 11:00
PROVIDERS: ADMIT Family Medicine; ATTEND Family Medicine
DX: J15.9 Unspecified bacterial pneumonia (principal); E22.2 Syndrome of inappropriate secretion of antidiuretic hormone; E87.6 Hypokalemia; I10 Essential (primary) hypertension; Z98.890 Other specified postprocedural states; Z87.891 Personal history of nicotine dependence; Z79.899 Other long term (current) drug therapy; Z20.822 Contact with and (suspected) exposure to COVID-19; R73.9 Hyperglycemia, unspecified; Z82.49 Family history of ischemic heart disease and other diseases of the circulatory system; I70.0 Atherosclerosis of aorta; R41.3 Other amnesia
CPT/HCPCS: 36415; 71045-TC; 80048-TC; 80053-TC; 80061-TC; 83735-TC; 84100-TC; 84155; 84165; 84443-TC; 84484-TC; 84550-TC; 85025-TC; 85652-TC; 87040-TC; 87081-TC; 93307-TC; 97116-TC; 97530-TC; G0378; J0696; J1650; J2270; J2405; J2543; J3370; J7042; J7050; J7060; U0003